=== PATIENT | female | born 1930 | race Caucasian/White ===

== ENCOUNTER 2019-03-13 10:06 | Observation (INO) | payer MEDICARE, BC ==
[2019-03-13] MEDS ORDERED: Sodium Chloride 0.9% 10 ML Syringe FLUSH PRN (10:10)
[2019-03-13] MEDS ORDERED: Sodium Chloride 0.9% 2.5 ML Syringe FLUSH PRN (10:10)
--- NOTE | 2019-03-13 10:13 | EDM.PDOC ---
ED HPI GENERAL MEDICAL PROBLEM - General Stated Complaint: DIZZY SPELLS Time Seen by Provider: 03/13/19 10:08 Source of Information: Reports: Patient History Limitations: Reports: No Limitations - History of Present Illness INITIAL COMMENTS - FREE TEXT/NARRATIVE: HISTORY AND PHYSICAL: History of present illness: Patient is an 88-year-old female presents to the ED today with concern of dizziness since this morning. Patient states that the dizziness is worse when she stands up and tries to walk and feels as if the room is spinning or she might lose consciousness. Patient states because of the dizziness she feels " off balance." Patient states she has not had any falls or hitting her head. Patient states she has a history of hypothyroidism, hypertension, and colon cancer but has been in remission for several years according to patient. Patient denies fever, chills, chest pain, shortness of breath, or cough. Denies headache, neck stiff ness, change in vision, syncope. Denies nausea, vomiting, abdominal pain, diarrhea, constipation, or dysuria. Has not noted any blood in urine or stool. Patient has been eating and drinking appropriately. Review of systems: As per history of present illness and below otherwise all systems reviewed and negative. Past medical history: As per history of present illness and as reviewed below otherwise noncontributory. Surgical history: As per history of present illness and as reviewed below otherwise noncontributory. Social history: See social history for further information Family history: As per history of present illness and as reviewed below otherwise noncontributory. Physical exam: General: Patient is alert, oriented, and in no acute distress. Patient laying comfortably on exam table. HEENT: Atraumatic, normocephalic, pupils equal and reactive bilaterally, negative for conjunctival pallor or scleral icterus, mucous membranes dry, TMs normal bilaterally, throat clear, neck supple, nontender, trachea midline. No drooling or trismus noted. No meningeal signs. No hot potato voice noted. Lungs: Clear to auscultation, breath sounds equal bilaterally, chest nontender. Heart: S1S2, regular rate and rhythm without overt murmur Abdomen: Soft, nondistended, nontender. Negative for masses or hepatosplenomegaly. Negative for costovertebral tenderness. Pelvis: Stable nontender. Genitourinary: Deferred. Rectal: Deferred. Skin: Intact, warm, dry. No lesions or rashes noted. Extremities: Atraumatic, negative for cords or calf pain. Neurovascular unremarkable. Neuro: Awake, alert, oriented. Cranial nerves II through XII unremarkable. Cerebellum unremarkable. Motor and sensory unremarkable throughout. Exam nonfocal. Notes: Dr. Roman consulted on patient and will admit to observation Voices understanding and is agreeable to plan of care. Denies any further questions or concerns at this time. Diagnostics: CBC, CMP, UA, EKG, chest x-ray, troponin, TSH, Head CT Therapeutics: Saline Impression: Dizziness Fall risk Hyperthyroid Plan: 1. Admit to observation to Dr. Roman Definitive disposition and diagnosis as appropriate pending reevaluation and review of above. - Related Data Allergies Allergy/AdvReac Type Severity Reaction Status Date / Time celecoxib [From Celebrex] Allergy Rash Verified 03/13/19 10:13 codeine Allergy Rash Verified 03/13/19 10:13 Home Meds: Home Meds Lactose-Reduced Food [Boost] 1 bottle PO DAILY 04/09/14 [History] Levothyroxine Sodium [Synthroid] 125 mcg PO DAILY 04/09/14 [History] Naproxen Sodium [Aleve] 2 tab PF ASDIRECTED PRN 04/09/14 [History] amLODIPine [Norvasc] 2.5 mg PO DAILY 03/13/19 [History] ED ROS GENERAL - Review of Systems Review Of Systems: ROS reveals no pertinent complaints other than HPI. ED EXAM, GENERAL - Physical Exam Exam: See Below (See dictation) Course - Vital Signs Last Recorded V/S: Last Vital Signs Temp 96.3 F 03/13/19 10:11 Pulse 76 03/13/19 10:11 Resp 18 03/13/19 10:11 BP 125/76 03/13/19 10:11 Pulse Ox 96 03/13/19 10:11 Orthostatic Blood Pressure [ 125/86 Standing] Orthostatic Blood Pressure [ 134/68 Sitting] Orthostatic Blood Pressure [ 126/64 Supine] - Orders/Labs/Meds Orders: Active Orders 24 hr Category Date Time Status EKG Documentation Completion [RC] STAT Care 03/13/19 10:10 Active Orthostatic Vital Signs [RC] ASDIRECTED Care 03/13/19 10:22 Active CULTURE URINE [RM] Stat Lab 03/13/19 10:30 Received Sodium Chloride 0.9% [Normal Saline] 1,000 ml Med 03/13/19 10:21 Active IV BOLUS Sodium Chloride 0.9% [Saline Flush] Med 03/13/19 10:10 Active 10 ml FLUSH ASDIRECTED PRN Sodium Chloride 0.9% [Saline Flush] Med 03/13/19 10:10 Active 2.5 ml FLUSH ASDIRECTED PRN Saline Lock Insert [OM.PC] Stat Oth 03/13/19 10:10 Ordered Medication Orders Sodium Chloride (Normal Saline) 1,000 mls @ 500 mls/hr IV BOLUS ONE Stop: 03/13/19 12:20 Last Infusion: 03/13/19 12:09 Dose: 50 mls/hr Admin: 03/13/19 11:06 Dose: 500 mls/hr Sodium Chloride (Saline Flush) 10 ml FLUSH ASDIRECTED PRN PRN Reason: Keep Vein Open Sodium Chloride (Saline Flush) 2.5 ml FLUSH ASDIRECTED PRN PRN Reason: Keep Vein Open Labs: Laboratory Tests 03/13/19 03/13/19 03/13/19 Range/Units 10: 10:19 10:19 WBC 4.73 (4.0-11.0) K/uL RBC 4.18 L (4.30-5.90) M/uL Hgb 13.0 (12.0-16.0) g/dL Hct 37.9 (36.0-46.0) % MCV 90.7 (80.0-98.0) fL MCH 31.1 (27.0-32.0) pg MCHC 34.3 (31.0-37.0) g/dL RDW Std Deviation 42.1 (28.0-62.0) fl RDW Coeff of [place] 13 (11.0-15.0) % Plt Count 161 (150-400) K/uL MPV 11.10 (7.40-12.00) fL Neut % (Auto) 48.4 (48.0-80.0) % Lymph % (Auto) 41.0 H (16.0-40.0) % Logan % (Auto) 8.7 (0.0-15.0) % Eos % (Auto) 1.7 (0.0-7.0) % Baso % (Auto) 0.2 (0.0-1.5) % Neut # (Auto) 2.3 (1.4-5.7) K/uL Lymph # (Auto) 1.9 (0.6-2.4) K/uL Logan # (Auto) 0.4 (0.0-0.8) K/uL Eos # (Auto) 0.1 (0.0-0.7) K/uL Baso # (Auto) 0.0 (0.0-0.1) K/uL Nucleated RBC % 0.0 /100WBC Nucleated RBCs # 0 K/uL Sodium 142 (136-145) mmol/L Potassium 4.1 (3.5-5.1) mmol/L Chloride 104 (98-107) mmol/L Carbon Dioxide 26.0 (21.0-32.0) mmol/L BUN 16 (7.0-18.0) mg/dL Creatinine 0.9 (0.6-1.0) mg/dL Est Cr Clr Drug Dosing 38.88 mL/min Estimated GFR (MDRD) 59.1 ml/min Glucose 107 H (74-106) mg/dL Calcium 9.3 (8.5-10.1) mg/dL Total Bilirubin 0.9 (0.2-1.0) mg/dL AST 25 (15-37) IU/L ALT 30 (14-63) IU/L Alkaline Phosphatase 64 (46-116) U/L Troponin I < 0.050 (0.000-0.056) ng/mL Total Protein 7.3 (6.4-8.2) g/dL Albumin 4.5 (3.4-5.0) g/dL Globulin 2.8 (2.6-4.0) g/dL Albumin/Globulin Ratio 1.6 (0.9-1.6) TSH 3rd Generation 0.28 L (0.36-3.74) uIU/mL Urine Color Urine Appearance Urine pH (5.0-8.0) Ur Specific [place] (1.001-1.035) Urine Protein (NEGATIVE) mg/dL Urine Glucose (UA) (NEGATIVE) mg/dL Urine Ketones (NEGATIVE) mg/dL Urine Occult Blood (NEGATIVE) Urine Nitrite (NEGATIVE) Urine Bilirubin (NEGATIVE) Urine Urobilinogen (<2.0) EU/dL Ur Leukocyte Esterase (NEGATIVE) Urine RBC (0-2/HPF) Urine WBC (0-5/HPF) Ur Epithelial Cells (NONE-FEW) Urine Bacteria (NEGATIVE) 03/13/19 Range/Units 10:30 WBC (4.0-11.0) K/uL RBC (4.30-5.90) M/uL Hgb (12.0-16.0) g/dL Hct (36.0-46.0) % MCV (80.0-98.0) fL MCH (27.0-32.0) pg MCHC (31.0-37.0) g/dL RDW Std Deviation (28.0-62.0) fl RDW Coeff of [place] (11.0-15.0) % Plt Count (150-400) K/uL MPV (7.40-12.00) fL Neut % (Auto) (48.0-80.0) % Lymph % (Auto) (16.0-40.0) % Logan % (Auto) (0.0-15.0) % Eos % (Auto) (0.0-7.0) % Baso % (Auto) (0.0-1.5) % Neut # (Auto) (1.4-5.7) K/uL Lymph # (Auto) (0.6-2.4) K/uL Logan # (Auto) (0.0-0.8) K/uL Eos # (Auto) (0.0-0.7) K/uL Baso # (Auto) (0.0-0.1) K/uL Nucleated RBC % /100WBC Nucleated RBCs # K/uL Sodium (136-145) mmol/L Potassium (3.5-5.1) mmol/L Chloride (98-107) mmol/L Carbon Dioxide (21.0-32.0) mmol/L BUN (7.0-18.0) mg/dL Creatinine (0.6-1.0) mg/dL Est Cr Clr Drug Dosing mL/min Estimated GFR (MDRD) ml/min Glucose (74-106) mg/dL Calcium (8.5-10.1) mg/dL Total Bilirubin (0.2-1.0) mg/dL AST (15-37) IU/L ALT (14-63) IU/L Alkaline Phosphatase (46-116) U/L Troponin I (0.000-0.056) ng/mL Total Protein (6.4-8.2) g/dL Albumin (3.4-5.0) g/dL Globulin (2.6-4.0) g/dL Albumin/Globulin Ratio (0.9-1.6) TSH 3rd Generation (0.36-3.74) uIU/mL Urine Color YELLOW Urine Appearance CLEAR Urine pH 8.0 (5.0-8.0) Ur Specific [place] 1.010 (1.001-1.035) Urine Protein NEGATIVE (NEGATIVE) mg/dL Urine Glucose (UA) NEGATIVE (NEGATIVE) mg/dL Urine Ketones NEGATIVE (NEGATIVE) mg/dL Urine Occult Blood NEGATIVE (NEGATIVE) Urine Nitrite NEGATIVE (NEGATIVE) Urine Bilirubin NEGATIVE (NEGATIVE) Urine Urobilinogen 0.2 (<2.0) EU/dL Ur Leukocyte Esterase MODERATE H (NEGATIVE) Urine RBC 0-2 (0-2/HPF) Urine WBC 0-3 (0-5/HPF) Ur Epithelial Cells OCCASIONAL (NONE-FEW) Urine Bacteria RARE (NEGATIVE) Meds: Medications Generic Name Dose Route Start Last Admin Trade Name Freq PRN Reason Stop Dose Admin Sodium Chloride 1,000 mls @ 500 mls/hr 03/13/19 10:21 03/13/19 12:09 Normal Saline IV 03/13/19 12:20 50 mls/hr BOLUS ONE Infusion Sodium Chloride 10 ml 03/13/19 10:10 Saline Flush FLUSH ASDIRECTED PRN Keep Vein Open Sodium Chloride 2.5 ml 03/13/19 10:10 Saline Flush FLUSH ASDIRECTED PRN Keep Vein Open Departure - Departure Time of Disposition: 12:18 Disposition: Refer to Observation Clinical Impression: Dizziness, Risk for falls, Hyperthyroidism - Discharge Information Referrals: Getachew Patterson MD [Primary Care Provider] - - My Orders Last 24 Hours: My Active Orders 03/13/19 10:10 EKG Documentation Completion [RC] STAT Sodium Chloride 0.9% [Saline Flush] 10 ml FLUSH ASDIRECTED PRN Sodium Chloride 0.9% [Saline Flush] 2.5 ml FLUSH ASDIRECTED PRN Saline Lock Insert [OM.PC] Stat 03/13/19 10:21 Sodium Chloride 0.9% [Normal Saline] 1,000 ml IV BOLUS 03/13/19 10:22 Orthostatic Vital Signs [RC] ASDIRECTED 03/13/19 10:30 CULTURE URINE [RM] Stat - Assessment/Plan Last 24 Hours: My Active Orders 03/13/19 10:10 EKG Documentation Completion [RC] STAT Sodium Chloride 0.9% [Saline Flush] 10 ml FLUSH ASDIRECTED PRN Sodium Chloride 0.9% [Saline Flush] 2.5 ml FLUSH ASDIRECTED PRN Saline Lock Insert [OM.PC] Stat 03/13/19 10:21 Sodium Chloride 0.9% [Normal Saline] 1,000 ml IV BOLUS 03/13/19 10:22 Orthostatic Vital Signs [RC] ASDIRECTED 03/13/19 10:30 CULTURE URINE [RM] Stat
[2019-03-13] MEDS ORDERED: Sodium Chloride 0.9% 1,000 ML IV ONE (10:21)
[2019-03-13 10:58] LABS: POTASSIUM,K 4.1 mmol/L (3.5-5.1)
--- NOTE | 2019-03-13 11:01 | CT ---
EXAM DATE: 03/13/19 PATIENT'S AGE: [address] Technique: Multiple axial sections through the brain were obtained. Intravenous contrast was not utilized. Comparison: No prior intracranial imaging. Findings: Atherosclerotic calcification is seen within the vertebral vessels and within the carotid siphon. Ventricles along with basal cisterns and sulci over the convexities are mildly prominent. Minimal areas of diminished density are noted within the periventricular white matter which is compatible with minimal small vessel ischemic demyelination change. No other abnormal parenchymal densities are seen. No evidence of intracranial hemorrhage. No midline shift or mass effect is seen. Bone window settings were reviewed which shows no acute calvarial abnormality. Mastoid sinuses are clear. Middle ear cavities also appear clear. No acute paranasal sinus findings are appreciated. Incidental mild mucosal thickening is seen within the maxillary sinuses. Impression: 1. Senescent change as noted above. 2. Nothing acute is appreciated on noncontrast head CT exam. Diagnostic code #2 MTDD
--- NOTE | 2019-03-13 11:22 | CR ---
EXAM DATE: 03/13/19 PATIENT'S AGE: 88 Chest: AP view of the chest was obtained. Comparison: Prior chest x-ray of 12/26/13. Heart size is normal. Tortuous thoracic aorta is seen. Lungs are clear. Degenerative change is noted within both shoulders with findings compatible with chronic rotator cuff tears. Impression: 1. Findings as noted above. 2. Nothing acute is appreciated on AP chest x-ray. Diagnostic code #2 MTDD
[2019-03-13] MEDS ORDERED: Acetaminophen 325 MG Tab PO PRN (12:57)
[2019-03-13] MEDS ORDERED: Ondansetron 4 MG/2 ML SDV IVPUSH PRN (12:57)
[2019-03-13] MEDS ORDERED: Albuterol/Ipratropium 3.0-0.5 MG/3 ML Neb Soln NEB PRN (12:57)
[2019-03-13] MEDS ORDERED: Aspirin 81 MG Tab.Chew PO ONE (12:58)
--- NOTE | 2019-03-13 13:00 | PCM.HP.2 ---
H&P History of Present Illness - General Date of Service: 03/13/19 Admit Problem/Dx: Admission Diagnosis/Problem Admission Diagnosis/Problem Dizziness Source of Information: Patient, Family History Limitations: Reports: No Limitations - History of Present Illness Initial Comments - Free Text/Narative: This 88 year old female with pmh of hypothyroidism, HTN, and colon ca in remission since 2012 presented to the ED with complaints of dizziness that started this morning. She had just finished taking her morning medications and she stood up and felt dizzy. She reports she feels like she is off balance and unsteady, denies the room is spinning. She reports she has had vertigo in the past and feels this is very similar, but denies the dizziness worsening when she moves her head, only with standing up or sitting up. She reports up until this today when dizziness started she was feeling well. She denies recent fevers , chills, sinus congestion, no dyspnea or chest pain. She denies noticing any palpitations or racing heart. No urinary concerns, no dysuria or urgency frequency. No abdominal pain or diarrhea. No black or bloody BMs. She denies any focal neurological concerns. Denies weakness to specific limb, no speech or swallowing concerns. She denies smoking history and no alcohol use. In the ED no leukocytosis, CBC WNL. Troponin negative. BMP WNL. CXR negative. TSH noted to be 0.28, UA reveals leukocyte esterase, no pyruia or bacteria. EKG revealed SR with prolonged LA, no ST elevation or T wave inversions. Orthostatic BP stable in ED no hypotension or drop in BP. Head CT negative. PCP, Dr Patterson. - Related Data Allergies/Adverse Reactions: Allergies Allergy/AdvReac Type Severity Reaction Status Date / Time celecoxib [From Celebrex] Allergy Rash Verified 03/13/19 10:13 codeine Allergy Rash Verified 03/13/19 10:13 latex Allergy Rash Verified 03/13/19 12:41 Home Medications: Home Meds Lactose-Reduced Food [Boost] 1 bottle PO DAILY 04/09/14 [History] Levothyroxine Sodium [Synthroid] 125 mcg PO DAILY 04/09/14 [History] Naproxen Sodium [Aleve] 2 tab PF ASDIRECTED PRN 04/09/14 [History] amLODIPine [Norvasc] 2.5 mg PO DAILY 03/13/19 [History] Past Medical History HEENT History: Reports: Cataract, Other (See Below) Other HEENT History: blind right eye Cardiovascular History: Reports: High Cholesterol, Hypertension. Denies: Afib, Blood Clots/VTE/DVT, MT, Stents Respiratory History: Reports: None. Denies: Asthma, COPD Gastrointestinal History: Reports: None. Denies: GERD Genitourinary History: Reports: None. Denies: Chronic Renal Insuffiency [employer] History: Reports: None Musculoskeletal History: Reports: Arthritis, Back Pain, Chronic, Gout Neurological History: Reports: None. Denies: CVA, TIA Psychiatric History: Reports: None. Denies: Depression Endocrine/Metabolic History: Reports: Hypothyroidism Hematologic History: Reports: None Immunologic History: Reports: None Oncologic (Cancer) History: Reports: Colon Dermatologic History: Reports: None - Past Surgical History HEENT Surgical History: Reports: None Cardiovascular Surgical History: Reports: None Respiratory Surgical History: Reports: None GI Surgical History: Reports: Colon, Hernia, Abdominal Female Surgical History: Reports: None Endocrine Surgical History: Reports: None Neurological Surgical History: Reports: Lumbar Spine Musculoskeletal Surgical History: Reports: None Oncologic Surgical History: Reports: None Dermatological Surgical History: Reports: None Social & Family History - Family History Family Medical History: Noncontributory - Tobacco Use Smoking Status *Q: Never Smoker Second Hand Smoke Exposure: No - Caffeine Use Caffeine Use: Reports: None - Alcohol Use Alcohol Use History: No - Recreational Drug Use Recreational Drug Use: No - Living Situation & Occupation Living situation: Reports: , with Family Occupation: Retired H&P Review of Systems - Review of Systems: Review Of Systems: See Below General: Reports: No Symptoms. Denies: Fever, Chills, Malaise, Weakness HEENT: Reports: Vertigo. Denies: Ear Pain, Eye Pain, Headaches, Post Nasal Drip , Sinus Congestion, Visual Changes Pulmonary: Reports: Shortness of Breath (has been ). Denies: Cough, Sputum Cardiovascular: Reports: No Symptoms. Denies: Chest Pain Gastrointestinal: Reports: No Symptoms. Denies: Black Stool, Bloody Stool Genitourinary: Reports: No Symptoms. Denies: Dysuria, Frequency, Burning, Pain , Urgency, Incontinence Musculoskeletal: Reports: Back Pain (chronic low back pain) Skin: Reports: No Symptoms Psychiatric: Reports: No Symptoms Neurological: Reports: Dizziness, Gait Disturbance (feels unsteady). Denies: Headache, Numbness, Paresthesia, Weakness, Change in Speech Hematologic/Lymphatic: Reports: No Symptoms Immunologic: Reports: No Symptoms Exam - Exam Exam: See Below - Vital Signs Vital Signs: Last Vital Signs Temp 96.3 F 03/13/19 10:11 Pulse 67 03/13/19 12:30 Resp 15 03/13/19 12:30 BP 136/79 03/13/19 12:30 Pulse Ox 95 03/13/19 12:30 Orthostatic Blood Pressure [ 125/86 Standing] Orthostatic Blood Pressure [ 134/68 Sitting] Orthostatic Blood Pressure [ 126/64 Supine] Weight: 63.503 kg - Exam General: Alert, Oriented, Cooperative HEENT: Conjunctiva Clear, Mucosa Moist & [place], Posterior Pharynx Clear Lungs: Clear to Auscultation, Normal Respiratory Effort Cardiovascular: Regular Rate, Regular Rhythm. No: Systolic Murmur GI/Abdominal Exam: Normal Bowel Sounds, Soft, Non-Tender Back Exam: Normal Inspection, Full Range of Motion Extremities: Normal Inspection, Normal Range of Motion, Non-Tender, No Pedal Edema Neuro Extensive - Mental Status: Alert, Oriented x3 Neuro Extensive - Motor, Sensory, Reflexes: CN II-XII Intact. No: Normal Gait ( unsteady) Psychiatric: Alert, Normal Affect, Normal Mood - Patient Data Lab Results Last 24 hrs: Laboratory Results - last 24 hr 03/13/19 03/13/19 03/13/19 Range/Units 10: 10: 10: WBC 4.73 (4.0-11.0) K/uL RBC 4.18 L (4.30-5.90) M/uL Hgb 13.0 (12.0-16.0) g/dL Hct 37.9 (36.0-46.0) % MCV 90.7 (80.0-98.0) fL MCH 31.1 (27.0-32.0) pg MCHC 34.3 (31.0-37.0) g/dL RDW Std Deviation 42.1 (28.0-62.0) fl RDW Coeff of Jose Francisco 13 (11.0-15.0) % Plt Count 161 (150-400) K/uL MPV 11.10 (7.40-12.00) fL Neut % (Auto) 48.4 (48.0-80.0) % Lymph % (Auto) 41.0 H (16.0-40.0) % Rains % (Auto) 8.7 (0.0-15.0) % Eos % (Auto) 1.7 (0.0-7.0) % Baso % (Auto) 0.2 (0.0-1.5) % Neut # (Auto) 2.3 (1.4-5.7) K/uL Lymph # (Auto) 1.9 (0.6-2.4) K/uL Rains # (Auto) 0.4 (0.0-0.8) K/uL Eos # (Auto) 0.1 (0.0-0.7) K/uL Baso # (Auto) 0.0 (0.0-0.1) K/uL Nucleated RBC % 0.0 /100WBC Nucleated RBCs # 0 K/uL Sodium 142 (136-145) mmol/L Potassium 4.1 (3.5-5.1) mmol/L Chloride 104 (98-107) mmol/L Carbon Dioxide 26.0 (21.0-32.0) mmol/L BUN 16 (7.0-18.0) mg/dL Creatinine 0.9 (0.6-1.0) mg/dL Est Cr Clr Drug Dosing 38.88 mL/min Estimated GFR (MDRD) 59.1 ml/min Glucose 107 H (74-106) mg/dL Calcium 9.3 (8.5-10.1) mg/dL Total Bilirubin 0.9 (0.2-1.0) mg/dL AST 25 (15-37) IU/L ALT 30 (14-63) IU/L Alkaline Phosphatase 64 (46-116) U/L Troponin I < 0.050 (0.000-0.056) ng/mL Total Protein 7.3 (6.4-8.2) g/dL Albumin 4.5 (3.4-5.0) g/dL Globulin 2.8 (2.6-4.0) g/dL Albumin/Globulin Ratio 1.6 (0.9-1.6) TSH 3rd Generation 0.28 L (0.36-3.74) uIU/mL Urine Color Urine Appearance Urine pH (5.0-8.0) Ur Specific [place] (1.001-1.035) Urine Protein (NEGATIVE) mg/dL Urine Glucose (UA) (NEGATIVE) mg/dL Urine Ketones (NEGATIVE) mg/dL Urine Occult Blood (NEGATIVE) Urine Nitrite (NEGATIVE) Urine Bilirubin (NEGATIVE) Urine Urobilinogen (<2.0) EU/dL Ur Leukocyte Esterase (NEGATIVE) Urine RBC (0-2/HPF) Urine WBC (0-5/HPF) Ur Epithelial Cells (NONE-FEW) Urine Bacteria (NEGATIVE) 03/13/19 Range/Units 10:30 WBC (4.0-11.0) K/uL RBC (4.30-5.90) M/uL Hgb (12.0-16.0) g/dL Hct (36.0-46.0) % MCV (80.0-98.0) fL MCH (27.0-32.0) pg MCHC (31.0-37.0) g/dL RDW Std Deviation (28.0-62.0) fl RDW Coeff of Jose Francisco (11.0-15.0) % Plt Count (150-400) K/uL MPV (7.40-12.00) fL Neut % (Auto) (48.0-80.0) % Lymph % (Auto) (16.0-40.0) % Rains % (Auto) (0.0-15.0) % Eos % (Auto) (0.0-7.0) % Baso % (Auto) (0.0-1.5) % Neut # (Auto) (1.4-5.7) K/uL Lymph # (Auto) (0.6-2.4) K/uL Rains # (Auto) (0.0-0.8) K/uL Eos # (Auto) (0.0-0.7) K/uL Baso # (Auto) (0.0-0.1) K/uL Nucleated RBC % /100WBC Nucleated RBCs # K/uL Sodium (136-145) mmol/L Potassium (3.5-5.1) mmol/L Chloride (98-107) mmol/L Carbon Dioxide (21.0-32.0) mmol/L BUN (7.0-18.0) mg/dL Creatinine (0.6-1.0) mg/dL Est Cr Clr Drug Dosing mL/min Estimated GFR (MDRD) ml/min Glucose (74-106) mg/dL Calcium (8.5-10.1) mg/dL Total Bilirubin (0.2-1.0) mg/dL AST (15-37) IU/L ALT (14-63) IU/L Alkaline Phosphatase (46-116) U/L Troponin I (0.000-0.056) ng/mL Total Protein (6.4-8.2) g/dL Albumin (3.4-5.0) g/dL Globulin (2.6-4.0) g/dL Albumin/Globulin Ratio (0.9-1.6) TSH 3rd Generation (0.36-3.74) uIU/mL Urine Color YELLOW Urine Appearance CLEAR Urine pH 8.0 (5.0-8.0) Ur Specific [place] 1.010 (1.001-1.035) Urine Protein NEGATIVE (NEGATIVE) mg/dL Urine Glucose (UA) NEGATIVE (NEGATIVE) mg/dL Urine Ketones NEGATIVE (NEGATIVE) mg/dL Urine Occult Blood NEGATIVE (NEGATIVE) Urine Nitrite NEGATIVE (NEGATIVE) Urine Bilirubin NEGATIVE (NEGATIVE) Urine Urobilinogen 0.2 (<2.0) EU/dL Ur Leukocyte Esterase MODERATE H (NEGATIVE) Urine RBC 0-2 (0-2/HPF) Urine WBC 0-3 (0-5/HPF) Ur Epithelial Cells OCCASIONAL (NONE-FEW) Urine Bacteria RARE (NEGATIVE) Result Diagrams: 03/13/19 10:19 03/13/19 10:19 EKG INTERPRETATION EKG Date: 03/13/19 Rhythm: NSR Rate (Beats/Min): 70 P-Wave: Present (LA prolonged,) QRS: Normal ST-T: Normal QT: Normal - Problem List (1) Dizziness SNOMED Code(s): 200388577, 288075316 ICD Code: R42 - DIZZINESS AND GIDDINESS Status: Acute Current Visit: Yes (2) Hypothyroidism SNOMED Code(s): 27400475 ICD Code: E03.9 - HYPOTHYROIDISM, UNSPECIFIED Status: Chronic Current Visit: Yes (3) HTN (hypertension) SNOMED Code(s): 41601105 ICD Code: I10 - ESSENTIAL (PRIMARY) HYPERTENSION Status: Acute Current Visit: Yes (4) Hyperthyroidism SNOMED Code(s): 95047539 ICD Code: E05.90 - THYROTOXICOSIS, UNSP WITHOUT THYROTOXIC CRISIS OR STORM Status: Acute Current Visit: Yes (5) Risk for falls SNOMED Code(s): 312706911 ICD Code: Z91.81 - HISTORY OF FALLING Status: Acute Current Visit: Yes (6) History of malignant neoplasm of colon SNOMED Code(s): 173041789 ICD Code: Z85.038 - PERSONAL HISTORY OF MALIGNANT NEOPLASM OF LARGE INTESTINE Status: Acute Current Visit: No Problem List Initiated/Reviewed/Updated: Yes Orders Last 24hrs: Active Orders 24 hr Category Date Time Status Admission Status [Patient Status] [ADT] Stat ADT 03/13/19 12:21 Active EKG Documentation Completion [RC] STAT Care 03/13/19 10:10 Active Intake and Output [RC] QSHIFT Care 03/13/19 12:57 Ordered Orthostatic Vital Signs [RC] ASDIRECTED Care 03/13/19 10:22 Active Oxygen Therapy [RC] PRN Care 03/13/19 12:57 Ordered RT Aerosol Therapy [RC] ASDIRECTED Care 03/13/19 12:58 Ordered Telemetry Monitoring [Cardiac Monitoring] [RC] . Care 03/13/19 12:27 Active DIRECTED Up With Assistance [RC] ASDIRECTED Care 03/13/19 12:57 Ordered VTE/DVT Education [RC] PER UNIT ROUTINE Care 03/13/19 12:57 Ordered Vital Signs [RC] Q4H Care 03/13/19 12:57 Ordered PT Evaluation and Treatment [CONS] Routine Cons 03/13/19 12:57 Ordered Heart Healthy Diet [DIET] Diet 03/13/19 Lunch Ordered Brain wo Cont [MR] Routine Exams 03/13/19 12:55 Ordered BASIC METABOLIC PANEL,BMP [CHEM] AM Lab 03/14/19 05:11 Ordered CBC WITH AUTO DIFF [HEME] AM Lab 03/14/19 05:11 Ordered CULTURE URINE [RM] Stat Lab 03/13/19 10:30 Received GLYCOSYLATED HEMOGLOBIN,HGBA1C [CHEM] Routine Lab 03/14/19 05:11 Ordered LIPID PANEL [CHEM] Routine Lab 03/13/19 12:59 Ordered Acetaminophen [Tylenol] Med 03/13/19 12:57 Ordered 650 mg PO Q4H PRN Albuterol/Ipratropium [DuoNeb 3.0-0.5 MG/3 ML] Med 03/13/19 12:57 Ordered 3 ml NEB Q4HRRT PRN Aspirin Med 03/13/19 12:58 Once 324 mg PO ONETIME ONE Ondansetron [Zofran] Med 03/13/19 12:57 Ordered 4 mg IVPUSH Q4H PRN Sodium Chloride 0.9% [Saline Flush] Med 03/13/19 10:10 Active 10 ml FLUSH ASDIRECTED PRN Sodium Chloride 0.9% [Saline Flush] Med 03/13/19 10:10 Active 2.5 ml FLUSH ASDIRECTED PRN Saline Lock Insert [OM.PC] Stat Oth 03/13/19 10:10 Ordered Resuscitation Status Routine Resus Stat 03/13/19 12:57 Ordered Medication Orders Acetaminophen (Tylenol) 650 mg PO Q4H PRN PRN Reason: Pain (Mild 1-3)/fever Albuterol/Ipratropium (Duoneb 3.0-0.5 Mg/3 Ml) 3 ml NEB Q4HRRT PRN PRN Reason: Shortness Of Breath/wheezing Aspirin (Aspirin) 324 mg PO ONETIME ONE Stop: 03/13/19 12:59 Ondansetron HCl (Zofran) 4 mg IVPUSH Q4H PRN PRN Reason: Nausea Sodium Chloride (Saline Flush) 10 ml FLUSH ASDIRECTED PRN PRN Reason: Keep Vein Open Sodium Chloride (Saline Flush) 2.5 ml FLUSH ASDIRECTED PRN PRN Reason: Keep Vein Open Assessment/Plan Comment:: This 88 year old female admitted with new onset dizziness 1. Dizziness: new onset this morning, no nystagmus noted. Will obtain Brain MRI to further evaluate for possible stroke. Will give ASA now. Reports allergic to statin therapies, will hold off on statin for now. Obtain A1c and lipid profile. Consult PT to evaluate for vestibular causes due to history of vertigo in the past. Hold on meclizine until PT evaluates. Monitor Orthostatic BPs. Given 1 L in the ED, does not appear dehydrated. 2. Hypothyroidism: Hold Levothyroxine due to TSH being decreased at 0.28. Currently taking 125 mcg Levothyroxine, decrease to 100 and recheck with PCP. Previous TSH 2.5 in May 2018. Monitor on telemetry for arrhythmias. 3. HTN: Stable. Hold Norvasc for now while ruling out CVA. VTE prophylaxis: Heparin Dispo: 1-2 days pending improvement. - Mortality Measure Prognosis:: Good
--- NOTE | 2019-03-13 14:33 | MR ---
INDICATION: Dizziness. TECHNIQUE: Brain MRI without contrast. The following sequences were obtained: 3D T1 weighted sequence. DWI and ADC mapping sequences. Axial FLAIR and IRIS T2 weighted sequences. Axial SWI sequence. COMPARISON: Head CT from 03/13/2019. FINDINGS: No acute infarct or hemorrhage. Scattered T2 hyperintensities within the deep and periventricular white matter, nonspecific but most likely represents chronic small vessel ischemic disease and age related changes in a patient in this age category. There is mild generalized parenchymal volume loss. No mass effect or herniation. No hydrocephalus or extra-axial collections. Low lying optic chiasm with thickening on the left. Posterior fossa is normal. All the major intracranial vascular structures demonstrate normal flow-related signal. The orbital contents are normal. No calvarial or skull base marrow signal abnormality. No obstructive sinus disease. No extracranial soft tissue findings. IMPRESSION: 1. No acute intracranial abnormalities, including no evidence of acute infarction, intracranial hemorrhage or mass effect. 2. Mild generalized parenchymal volume loss. Mild chronic small vessel ischemic disease and age related changes within the supratentorial white matter. 3. Low-lying optic chiasm with thickening on the left. This may reflect anatomic variation. Contrast imaging would be useful for further characterization and a nonemergent setting. Dictated by Juwan Hancock MD @ Mar 13 2019 2:22PM Signed by Dr. Juwan Hancock @ Mar 13 2019 2:32PM
[2019-03-13] MEDS ORDERED: Heparin Sodium 5,000 Units/ML Vial SUBCUT SCH (14:45)
[2019-03-13] MEDS ORDERED: Meclizine 25 MG Tab PO PRN (14:58)
[2019-03-13] MEDS ORDERED: Sodium Chloride 0.9% 500 ML IV SCH (17:15)
--- NOTE | 2019-03-13 19:20 | PCM.DCSUM1 ---
Discharge Summary - Hospital Course Free Text/Narrative:: Danielle Mccall 88 y/o female with history of hypothyroidism, hypertension presented to the ER complaining of new onset dizziness. In the ER, EKG showed sinus rhythm , no ST changes. Troponin was negative. She was admitted for further workup of new onset dizziness. MRI was negative for any acute findings. She was placed on telemetry. Later on this evening, telemetry showed an arrhythmia, bradycardia into the 40's. 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 Patient denied any chest pain, dyspnea. She did endorse some dizziness. Dr. 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 Spoke with Dr. Hernandez who accepted the patient. Initially, patient was going to be transported via ground ambulance, however, no ambulance service available at the time so it was decided to transfer her via air. - Discharge Data Discharge Date: 03/13/19 Discharge Disposition: DC/Tfer to Acute Hospital 02 Condition: Fair - Referral to Home Health Primary Care Physician: Getachew Patterson MD - Patient Summary/Data Consults: Consultations 03/13/19 12:57 PT Evaluation and Treatment [CONS] Routine - Discharge Plan Home Medications: Home Meds Lactose-Reduced Food [Boost] 1 bottle PO DAILY 04/09/14 [History] Naproxen Sodium [Aleve] 2 tab PF ASDIRECTED PRN 04/09/14 [History] Levothyroxine 112 mcg PO DAILY 03/13/19 [History] amLODIPine [Norvasc] 10 mg PO BEDTIME 03/13/19 [History] Forms: ED Department Discharge Referrals: Getachew Patterson MD [Primary Care Provider] - - Discharge Summary/Plan Comment DC Time >30 min.: No - Patient Data Vitals - Most Recent: Last Vital Signs Temp 36.8 C 03/13/19 17:49 Pulse 82 03/13/19 17:49 Resp 22 H 03/13/19 17:49 BP 159/74 H 03/13/19 17:49 Pulse Ox 95 03/13/19 17:49 Orthostatic Blood Pressure [ 126/68 Standing] Orthostatic Blood Pressure [ 133/69 Sitting] Orthostatic Blood Pressure [ 131/63 Supine] Weight - Most Recent: 63.503 kg I&O - Last 24 hours: Intake & Output 03/13/19 03/13/19 03/13/19 06:59 14:59 22:59 Intake Total 800 Output Total 400 Balance 400 Lab Results - Last 24 hrs: Laboratory Results - last 24 hr 03/13/19 03/13/19 03/13/19 Range/Units 10: 10: 10: WBC 4.73 (4.0-11.0) K/uL RBC 4.18 L (4.30-5.90) M/uL Hgb 13.0 (12.0-16.0) g/dL Hct 37.9 (36.0-46.0) % MCV 90.7 (80.0-98.0) fL MCH 31.1 (27.0-32.0) pg MCHC 34.3 (31.0-37.0) g/dL RDW Std Deviation 42.1 (28.0-62.0) fl RDW Coeff of Jose Francisco 13 (11.0-15.0) % Plt Count 161 (150-400) K/uL MPV 11.10 (7.40-12.00) fL Neut % (Auto) 48.4 (48.0-80.0) % Lymph % (Auto) 41.0 H (16.0-40.0) % [place] % (Auto) 8.7 (0.0-15.0) % Eos % (Auto) 1.7 (0.0-7.0) % Baso % (Auto) 0.2 (0.0-1.5) % Neut # (Auto) 2.3 (1.4-5.7) K/uL Lymph # (Auto) 1.9 (0.6-2.4) K/uL [place] # (Auto) 0.4 (0.0-0.8) K/uL Eos # (Auto) 0.1 (0.0-0.7) K/uL Baso # (Auto) 0.0 (0.0-0.1) K/uL Nucleated RBC % 0.0 /100WBC Nucleated RBCs # 0 K/uL Sodium 142 (136-145) mmol/L Potassium 4.1 (3.5-5.1) mmol/L Chloride 104 (98-107) mmol/L Carbon Dioxide 26.0 (21.0-32.0) mmol/L BUN 16 (7.0-18.0) mg/dL Creatinine 0.9 (0.6-1.0) mg/dL Est Cr Clr Drug Dosing 38.88 mL/min Estimated GFR (MDRD) 59.1 ml/min Glucose 107 H (74-106) mg/dL Calcium 9.3 (8.5-10.1) mg/dL Phosphorus (2.6-4.7) mg/dL Magnesium (1.8-2.4) mg/dL Total Bilirubin 0.9 (0.2-1.0) mg/dL AST 25 (15-37) IU/L ALT 30 (14-63) IU/L Alkaline Phosphatase 64 (46-116) U/L Troponin I < 0.050 (0.000-0.056) ng/mL Total Protein 7.3 (6.4-8.2) g/dL Albumin 4.5 (3.4-5.0) g/dL Globulin 2.8 (2.6-4.0) g/dL Albumin/Globulin Ratio 1.6 (0.9-1.6) Triglycerides (0-200) mg/dL Cholesterol (50-200) mg/dL LDL Cholesterol, Calc (60-180) mg/dL VLDL Cholesterol (5-55) mg/dL HDL Cholesterol (40-60) mg/dL Cholesterol/HDL Ratio (3.3-6.0) TSH 3rd Generation 0.28 L (0.36-3.74) uIU/mL Urine Color Urine Appearance Urine pH (5.0-8.0) Ur Specific [place] (1.001-1.035) Urine Protein (NEGATIVE) mg/dL Urine Glucose (UA) (NEGATIVE) mg/dL Urine Ketones (NEGATIVE) mg/dL Urine Occult Blood (NEGATIVE) Urine Nitrite (NEGATIVE) Urine Bilirubin (NEGATIVE) Urine Urobilinogen (<2.0) EU/dL Ur Leukocyte Esterase (NEGATIVE) Urine RBC (0-2/HPF) Urine WBC (0-5/HPF) Ur Epithelial Cells (NONE-FEW) Urine Bacteria (NEGATIVE) 03/13/19 03/13/19 03/13/19 Range/Units 10: 10: 16:50 WBC (4.0-11.0) K/uL RBC (4.30-5.90) M/uL Hgb (12.0-16.0) g/dL Hct (36.0-46.0) % MCV (80.0-98.0) fL MCH (27.0-32.0) pg MCHC (31.0-37.0) g/dL RDW Std Deviation (28.0-62.0) fl RDW Coeff of Jose Francisco (11.0-15.0) % Plt Count (150-400) K/uL MPV (7.40-12.00) fL Neut % (Auto) (48.0-80.0) % Lymph % (Auto) (16.0-40.0) % [place] % (Auto) (0.0-15.0) % Eos % (Auto) (0.0-7.0) % Baso % (Auto) (0.0-1.5) % Neut # (Auto) (1.4-5.7) K/uL Lymph # (Auto) (0.6-2.4) K/uL [place] # (Auto) (0.0-0.8) K/uL Eos # (Auto) (0.0-0.7) K/uL Baso # (Auto) (0.0-0.1) K/uL Nucleated RBC % /100WBC Nucleated RBCs # K/uL Sodium (136-145) mmol/L Potassium (3.5-5.1) mmol/L Chloride (98-107) mmol/L Carbon Dioxide (21.0-32.0) mmol/L BUN (7.0-18.0) mg/dL Creatinine (0.6-1.0) mg/dL Est Cr Clr Drug Dosing mL/min Estimated GFR (MDRD) ml/min Glucose (74-106) mg/dL Calcium (8.5-10.1) mg/dL Phosphorus (2.6-4.7) mg/dL Magnesium (1.8-2.4) mg/dL Total Bilirubin (0.2-1.0) mg/dL AST (15-37) IU/L ALT (14-63) IU/L Alkaline Phosphatase (46-116) U/L Troponin I < 0.050 (0.000-0.056) ng/mL Total Protein (6.4-8.2) g/dL Albumin (3.4-5.0) g/dL Globulin (2.6-4.0) g/dL Albumin/Globulin Ratio (0.9-1.6) Triglycerides 107 (0-200) mg/dL Cholesterol 184 (50-200) mg/dL LDL Cholesterol, Calc 109 (60-180) mg/dL VLDL Cholesterol 21 (5-55) mg/dL HDL Cholesterol 54 (40-60) mg/dL Cholesterol/HDL Ratio 3.4 (3.3-6.0) TSH 3rd Generation (0.36-3.74) uIU/mL Urine Color YELLOW Urine Appearance CLEAR Urine pH 8.0 (5.0-8.0) Ur Specific [place] 1.010 (1.001-1.035) Urine Protein NEGATIVE (NEGATIVE) mg/dL Urine Glucose (UA) NEGATIVE (NEGATIVE) mg/dL Urine Ketones NEGATIVE (NEGATIVE) mg/dL Urine Occult Blood NEGATIVE (NEGATIVE) Urine Nitrite NEGATIVE (NEGATIVE) Urine Bilirubin NEGATIVE (NEGATIVE) Urine Urobilinogen 0.2 (<2.0) EU/dL Ur Leukocyte Esterase MODERATE H (NEGATIVE) Urine RBC 0-2 (0-2/HPF) Urine WBC 0-3 (0-5/HPF) Ur Epithelial Cells OCCASIONAL (NONE-FEW) Urine Bacteria RARE (NEGATIVE) 03/13/19 Range/Units 16:50 WBC (4.0-11.0) K/uL RBC (4.30-5.90) M/uL Hgb (12.0-16.0) g/dL Hct (36.0-46.0) % MCV (80.0-98.0) fL MCH (27.0-32.0) pg MCHC (31.0-37.0) g/dL RDW Std Deviation (28.0-62.0) fl RDW Coeff of Jose Francisco (11.0-15.0) % Plt Count (150-400) K/uL MPV (7.40-12.00) fL Neut % (Auto) (48.0-80.0) % Lymph % (Auto) (16.0-40.0) % [place] % (Auto) (0.0-15.0) % Eos % (Auto) (0.0-7.0) % Baso % (Auto) (0.0-1.5) % Neut # (Auto) (1.4-5.7) K/uL Lymph # (Auto) (0.6-2.4) K/uL [place] # (Auto) (0.0-0.8) K/uL Eos # (Auto) (0.0-0.7) K/uL Baso # (Auto) (0.0-0.1) K/uL Nucleated RBC % /100WBC Nucleated RBCs # K/uL Sodium (136-145) mmol/L Potassium (3.5-5.1) mmol/L Chloride (98-107) mmol/L Carbon Dioxide (21.0-32.0) mmol/L BUN (7.0-18.0) mg/dL Creatinine (0.6-1.0) mg/dL Est Cr Clr Drug Dosing mL/min Estimated GFR (MDRD) ml/min Glucose (74-106) mg/dL Calcium (8.5-10.1) mg/dL Phosphorus 3.4 (2.6-4.7) mg/dL Magnesium 2.0 (1.8-2.4) mg/dL Total Bilirubin (0.2-1.0) mg/dL AST (15-37) IU/L ALT (14-63) IU/L Alkaline Phosphatase (46-116) U/L Troponin I (0.000-0.056) ng/mL Total Protein (6.4-8.2) g/dL Albumin (3.4-5.0) g/dL Globulin (2.6-4.0) g/dL Albumin/Globulin Ratio (0.9-1.6) Triglycerides (0-200) mg/dL Cholesterol (50-200) mg/dL LDL Cholesterol, Calc (60-180) mg/dL VLDL Cholesterol (5-55) mg/dL HDL Cholesterol (40-60) mg/dL Cholesterol/HDL Ratio (3.3-6.0) TSH 3rd Generation (0.36-3.74) uIU/mL Urine Color Urine Appearance Urine pH (5.0-8.0) Ur Specific [place] (1.001-1.035) Urine Protein (NEGATIVE) mg/dL Urine Glucose (UA) (NEGATIVE) mg/dL Urine Ketones (NEGATIVE) mg/dL Urine Occult Blood (NEGATIVE) Urine Nitrite (NEGATIVE) Urine Bilirubin (NEGATIVE) Urine Urobilinogen (<2.0) EU/dL Ur Leukocyte Esterase (NEGATIVE) Urine RBC (0-2/HPF) Urine WBC (0-5/HPF) Ur Epithelial Cells (NONE-FEW) Urine Bacteria (NEGATIVE) Med Orders - Current: Current Medications Acetaminophen (Tylenol) 650 mg PO Q4H PRN PRN Reason: Pain (Mild 1-3)/fever Albuterol/Ipratropium (Duoneb 3.0-0.5 Mg/3 Ml) 3 ml NEB Q4HRRT PRN PRN Reason: Shortness Of Breath/wheezing Heparin Sodium (Porcine) (Heparin Sodium) 5,000 units SUBCUT Q12H LYSSA Last Admin: 03/13/19 15:45 Dose: 5,000 units Sodium Chloride (Normal Saline) 500 mls @ 999 mls/hr IV .BOLUS LYSSA Meclizine HCl (Antivert) 25 mg PO DAILY PRN PRN Reason: Dizziness Sodium Chloride (Saline Flush) 10 ml FLUSH ASDIRECTED PRN PRN Reason: Keep Vein Open Sodium Chloride (Saline Flush) 2.5 ml FLUSH ASDIRECTED PRN PRN Reason: Keep Vein Open Discontinued Medications Aspirin (Aspirin) 324 mg PO ONETIME ONE Stop: 03/13/19 12:59 Last Admin: 03/13/19 13:54 Dose: 324 mg Sodium Chloride (Normal Saline) 1,000 mls @ 500 mls/hr IV BOLUS ONE Stop: 03/13/19 12:20 Last Infusion: 03/13/19 12:09 Dose: 50 mls/hr Ondansetron HCl (Zofran) 4 mg IVPUSH Q4H PRN PRN Reason: Nausea
--- NOTE | 2019-03-13 20:44 | PCM.SN ---
- Free Text/Narrative Note: Patient showed worsening of her heart block from 1st degree to, 2nd degree type 1, folllwed by 3rd degree heart block. EKG was obtained which showed findings suggestive of 3rd degree heart block. Patient was transferred to icu and put on pace pads for close observation. Troponin was negative. Cardiology was consulted , recommended that patient needs to have a pacemaker before she can be discharged safely. Since we dont have the resources to perform pacemaker insertion here , patient needed to be transferred to higher level of care at [facility]. Patient was agreeable to pacemaker and family aware of transfer as well. Initially ground transport was requested but due to non-availability ( code red and trauma code) there would have been a significant delay so instead air transport was arranged.
[2019-03-13 21:42] VITALS: BP 129/72
[2019-03-13 21:44] VITALS: PULSE 82
== END 2019-03-13 21:00 ==
LOC: MW.ED 10:06 → MW.MS 12:36 → MW.ICU 20:36
PROVIDERS: ADMIT Student in an Organized Health Care Education/Training Program; ATTEND Student in an Organized Health Care Education/Training Program
DX: R42 Dizziness and giddiness (principal); E03.9 Hypothyroidism, unspecified; I10 Essential (primary) hypertension; E78.00 Pure hypercholesterolemia, unspecified; M19.90 Unspecified osteoarthritis, unspecified site; E05.90 Thyrotoxicosis, unspecified without thyrotoxic crisis or storm; Z91.81 History of falling; Z79.899 Other long term (current) drug therapy; Z85.038 Personal history of other malignant neoplasm of large intestine; Z88.6 Allergy status to analgesic agent; Z88.5 Allergy status to narcotic agent; Z91.040 Latex allergy status
CPT/HCPCS: 36415; 70450; 70551; 71045; 80053; 80061; 81001; 83735; 84100; 84443; 84484; 85025; 87086; 93005; 96360; 96361; 96372; 99285; A9270; G0378; J1644; J7040

== ENCOUNTER 2020-09-13 08:51 | Observation (INO) | payer MEDICARE, BC ==
[2020-09-13] MEDS ORDERED: Sodium Chloride 0.9% 2.5 ML Syringe FLUSH PRN (09:13)
[2020-09-13] MEDS ORDERED: Sodium Chloride 0.9% 10 ML Syringe FLUSH PRN (09:13)
[2020-09-13] MEDS ORDERED: Ondansetron 4 MG/2 ML SDV IVPUSH ONE (09:14)
[2020-09-13] MEDS ORDERED: Lactated Ringers 1,000 ML IV ONE (09:14)
--- NOTE | 2020-09-13 09:20 | EDM.PDOC ---
ED HPI GENERAL MEDICAL PROBLEM - General Chief Complaint: Gastrointestinal Problem Stated Complaint: CANT KEEP ANYTHING DOWN Time Seen by Provider: 09/13/20 08:59 - History of Present Illness INITIAL COMMENTS - FREE TEXT/NARRATIVE: 89-year-old female with a history of hypothyroidism, hypertension, remote colon cancer who is presenting with cough and vomiting. Patient states that her illness began approximately 3 weeks ago with nasal congestion and rhinorrhea cough and emesis. She was seen at a clinic and told that it was related to allergies. However, the problems have persisted and she continues to have significant issues with postprandial emesis. Stomach is also now starting to hurt a generalized aching pain. She has chest pain during the active coughing but not at any other time she also reports some dyspnea. She denies fever. She denies myalgias. Patient and her family are both fully vaccinated against COVID-19. The patient received her second COVID-19 shot in July 2020. Patient was able to keep down her levothyroxine and some water this morning she is not tried any solid food today. - Related Data Allergies Allergy/AdvReac Type Severity Reaction Status Date / Time celecoxib [From Celebrex] Allergy Rash Verified 09/13/20 09:03 codeine Allergy Rash Verified 09/13/20 09:03 latex Allergy Rash Verified 09/13/20 09:03 Home Meds: Home Meds Lactose-Reduced Food [Boost] 1 bottle PO DAILY 04/09/14 [History] Naproxen Sodium [Aleve] 2 tab PF ASDIRECTED PRN 04/09/14 [History] Levothyroxine 112 mcg PO DAILY 03/13/19 [History] amLODIPine [Norvasc] 10 mg PO BEDTIME 03/13/19 [History] Past Medical History HEENT History: Reports: Cataract, Other (See Below) Other HEENT History: blind right eye Cardiovascular History: Reports: High Cholesterol, Hypertension Respiratory History: Reports: None Gastrointestinal History: Reports: None Genitourinary History: Reports: None [employer] History: Reports: Musculoskeletal History: Reports: Arthritis, Back Pain, Chronic, Gout Neurological History: Reports: None Psychiatric History: Reports: None Endocrine/Metabolic History: Reports: Hypothyroidism Hematologic History: Reports: None Immunologic History: Reports: None Oncologic (Cancer) History: Reports: Colon Dermatologic History: Reports: None - Infectious Disease History Infectious Disease History: Reports: None - Past Surgical History HEENT Surgical History: Reports: None Cardiovascular Surgical History: Reports: Pacer Respiratory Surgical History: Reports: None GI Surgical History: Reports: Colon, Hernia, Abdominal Female Surgical History: Reports: None Endocrine Surgical History: Reports: None Neurological Surgical History: Reports: Lumbar Spine Musculoskeletal Surgical History: Reports: None Oncologic Surgical History: Reports: None Dermatological Surgical History: Reports: None Social & Family History - Family History Family Medical History: No Pertinent Family History - Caffeine Use Caffeine Use: Reports: None - Recreational Drug Use Recreational Drug Use: No - Living Situation & Occupation Living situation: Reports: , with Family Occupation: Retired ED ROS GENERAL - Review of Systems Review Of Systems: See Below Free Text/Narrative/Comment: General: No fever. Skin: No rash. Eyes: No vision problems. ENT: No sore throat. Neck: No neck stiffness. Respiratory: Per HPI Cardiac: Per HPI Gastrointestinal Per HPI, no diarrhea Urinary: No dysuria. Musculoskeletal: No myalgias/arthralgias. Neurologic: No headache. ED EXAM, GENERAL - Physical Exam Exam: See Below Free Text/Narrative:: General Appearance: No acute distress, appears comfortable Skin: No rash HEENT: Normocephalic/atraumatic, sclera anicteric, mucous membranes dry Neck: Normal range of motion Chest and Lungs: Bilateral breath sounds, clear to auscultation Cardiovascular: Regular rate and rhythm, no murmur Abdomen: Soft, generalized tenderness without guarding or rebound no distention Musculoskeletal: No edema or tenderness Neurologic: Awake, alert, no obvious deficits, moving all extremities Psychiatric: Appropriate, cooperative #1 Interpretation EKG Date: 09/13/20 Time: 09:35 EKG Interpretation Comments: Sinus rhythm rate of 81 right bundle branch block, QTC 49 no acute ischemia Course - Vital Signs Last Recorded V/S: Last Vital Signs Temp 97.6 F 09/13/20 08:56 Pulse 73 09/13/20 11:30 Resp 17 09/13/20 11:30 BP 123/64 09/13/20 11:30 Pulse Ox 94 L 09/13/20 11:30 - Orders/Labs/Meds Orders: Active Orders 24 hr Category Date Time Status EKG Documentation Completion [RC] AM Care 09/13/20 09:13 Active Sodium Chloride 0.9% [Saline Flush] Med 09/13/20 09:13 Active 10 ml FLUSH ASDIRECTED PRN Sodium Chloride 0.9% [Saline Flush] Med 09/13/20 09:13 Active 2.5 ml FLUSH ASDIRECTED PRN Saline Lock Insert [OM.PC] Stat Oth 09/13/20 09:13 Ordered Medication Orders Sodium Chloride (Sodium Chloride 0.9% 10 Ml Syringe) 10 ml FLUSH ASDIRECTED PRN PRN Reason: Keep Vein Open Last Admin: 09/13/20 09:21 Dose: 10 ml Documented by: SHAWNA Sodium Chloride (Sodium Chloride 0.9% 2.5 Ml Syringe) 2.5 ml FLUSH ASDIRECTED PRN PRN Reason: Keep Vein Open Last Admin: 09/13/20 09:21 Dose: 2.5 ml Documented by: SHAWNA Labs: Laboratory Tests 09/13/20 09/13/20 09/13/20 Range/Units 09:18 09:18 09:18 WBC 5.58 (4.0-11.0) K/uL RBC 4.11 L (4.30-5.90) M/uL Hgb 12.9 (12.0-16.0) g/dL Hct 37.5 (36.0-46.0) % MCV 91.2 (80.0-98.0) fL MCH 31.4 (27.0-32.0) pg MCHC 34.4 (31.0-37.0) g/dL RDW Std Deviation 42.9 (28.0-62.0) fl RDW Coeff of Jose Francisco 13 (11.0-15.0) % Plt Count 192 (150-400) K/uL MPV 10.40 (7.40-12.00) fL Neut % (Auto) 54.5 (48.0-80.0) % Lymph % (Auto) 28.1 (16.0-40.0) % [place] % (Auto) 9.9 (0.0-15.0) % Eos % (Auto) 7.0 (0.0-7.0) % Baso % (Auto) 0.5 (0.0-1.5) % Neut # (Auto) 3.0 (1.4-5.7) K/uL Lymph # (Auto) 1.6 (0.6-2.4) K/uL [place] # (Auto) 0.6 (0.0-0.8) K/uL Eos # (Auto) 0.4 (0.0-0.7) K/uL Baso # (Auto) 0.0 (0.0-0.1) K/uL Nucleated RBC % 0.0 /100WBC Nucleated RBCs # 0 K/uL Lactate 1.1 (0.20-2.00) mmol/L Sodium 137 (136-145) mmol/L Potassium 4.0 (3.5-5.1) mmol/L Chloride 100 (98-107) mmol/L Carbon Dioxide 24.5 (21.0-32.0) mmol/L BUN 16 (7.0-18.0) mg/dL Creatinine 1.0 (0.6-1.0) mg/dL Est Cr Clr Drug Dosing 34.32 mL/min Estimated GFR (MDRD) 52.2 ml/min Glucose 124 H (74-106) mg/dL Calcium 8.9 (8.5-10.1) mg/dL Magnesium 2.1 (1.8-2.4) mg/dL Total Bilirubin 0.9 (0.2-1.0) mg/dL AST 37 (15-37) IU/L ALT 25 (14-63) IU/L Alkaline Phosphatase 138 H (46-116) U/L Troponin I < 0.050 (0.000-0.056) ng/mL Total Protein 7.6 (6.4-8.2) g/dL Albumin 3.9 (3.4-5.0) g/dL Globulin 3.7 (2.6-4.0) g/dL Albumin/Globulin Ratio 1.1 (0.9-1.6) Lipase 106 (73-393) U/L Influenza Type A RNA (NEGATIVE) Influenza Type B RNA (NEGATIVE) SARS-CoV-2 RNA (CIRILO) (NEGATIVE) 09/13/20 Range/Units 09:30 WBC (4.0-11.0) K/uL RBC (4.30-5.90) M/uL Hgb (12.0-16.0) g/dL Hct (36.0-46.0) % MCV (80.0-98.0) fL MCH (27.0-32.0) pg MCHC (31.0-37.0) g/dL RDW Std Deviation (28.0-62.0) fl RDW Coeff of Jose Francisco (11.0-15.0) % Plt Count (150-400) K/uL MPV (7.40-12.00) fL Neut % (Auto) (48.0-80.0) % Lymph % (Auto) (16.0-40.0) % [place] % (Auto) (0.0-15.0) % Eos % (Auto) (0.0-7.0) % Baso % (Auto) (0.0-1.5) % Neut # (Auto) (1.4-5.7) K/uL Lymph # (Auto) (0.6-2.4) K/uL [place] # (Auto) (0.0-0.8) K/uL Eos # (Auto) (0.0-0.7) K/uL Baso # (Auto) (0.0-0.1) K/uL Nucleated RBC % /100WBC Nucleated RBCs # K/uL Lactate (0.20-2.00) mmol/L Sodium (136-145) mmol/L Potassium (3.5-5.1) mmol/L Chloride (98-107) mmol/L Carbon Dioxide (21.0-32.0) mmol/L BUN (7.0-18.0) mg/dL Creatinine (0.6-1.0) mg/dL Est Cr Clr Drug Dosing mL/min Estimated GFR (MDRD) ml/min Glucose (74-106) mg/dL Calcium (8.5-10.1) mg/dL Magnesium (1.8-2.4) mg/dL Total Bilirubin (0.2-1.0) mg/dL AST (15-37) IU/L ALT (14-63) IU/L Alkaline Phosphatase (46-116) U/L Troponin I (0.000-0.056) ng/mL Total Protein (6.4-8.2) g/dL Albumin (3.4-5.0) g/dL Globulin (2.6-4.0) g/dL Albumin/Globulin Ratio (0.9-1.6) Lipase (73-393) U/L Influenza Type A RNA NEGATIVE (NEGATIVE) Influenza Type B RNA NEGATIVE (NEGATIVE) SARS-CoV-2 RNA (CIRILO) NEGATIVE (NEGATIVE) Meds: Medications Generic Name Dose Route Start Last Admin Trade Name Freq PRN Reason Stop Dose Admin Sodium Chloride 10 ml 09/13/20 09:13 09/13/20 09:21 Sodium Chloride 0.9% 10 Ml Syringe FLUSH 10 ml ASDIRECTED PRN Administration Keep Vein Open Sodium Chloride 2.5 ml 09/13/20 09:13 09/13/20 09:21 Sodium Chloride 0.9% 2.5 Ml Syringe FLUSH 2.5 ml ASDIRECTED PRN Administration Keep Vein Open Discontinued Medications Generic Name Dose Route Start Last Admin Trade Name Freq PRN Reason Stop Dose Admin Lactated Ringer's 1,000 mls @ 999 mls/hr 09/13/20 09:14 09/13/20 09:21 Ringers, Lactated IV 09/13/20 10:14 999 mls/hr .BOLUS ONE Administration Iopamidol 75 ml 09/13/20 10:38 09/13/20 10:39 Iopamidol 755 Mg/Ml 500 Ml Multipack Bottle IVPUSH 09/13/20 10:39 75 ml ONETIME ONE Administration Ondansetron HCl 4 mg 09/13/20 09:14 09/13/20 09:21 Ondansetron 4 Mg/2 Ml Sdv IVPUSH 09/13/20 09:15 4 mg ONETIME ONE Administration Departure - Departure Time of Disposition: 12:22 Disposition: Refer to Observation Condition: Good Clinical Impression: Portal vein thrombosis - Discharge Information *PRESCRIPTION DRUG MONITORING PROGRAM REVIEWED*: Not Applicable *COPY OF PRESCRIPTION DRUG MONITORING REPORT IN PATIENT VIVIANA: Not Applicable Referrals: PCP,None [Primary Care Provider] - Forms: ED Department Discharge Sepsis Event Note (ED) - Evaluation Sepsis Screening Result: No Definite Risk - Focused Exam Vital Signs: Vital Signs Temp Pulse Resp BP Pulse Ox 09/13/20 11:30 73 17 123/64 94 L 09/13/20 11:09 74 20 123/54 L 94 L 09/13/20 10:34 76 20 124/75 93 L 09/13/20 10:01 75 22 H 124/82 97 09/13/20 08:56 97.6 F 93 16 116/79 95 - My Orders Last 24 Hours: My Active Orders 09/13/20 09:13 EKG Documentation Completion [RC] AM Sodium Chloride 0.9% [Saline Flush] 10 ml FLUSH ASDIRECTED PRN Sodium Chloride 0.9% [Saline Flush] 2.5 ml FLUSH ASDIRECTED PRN Saline Lock Insert [OM.PC] Stat - Assessment/Plan Last 24 Hours: My Active Orders 09/13/20 09:13 EKG Documentation Completion [RC] AM Sodium Chloride 0.9% [Saline Flush] 10 ml FLUSH ASDIRECTED PRN Sodium Chloride 0.9% [Saline Flush] 2.5 ml FLUSH ASDIRECTED PRN Saline Lock Insert [OM.PC] Stat Assessment:: 89-year-old female presenting with now 3 weeks of rhinorrhea cough and p.o. intolerance. Significant postnasal drip related to allergies can certainly lead to coughing and occasionally nausea and vomiting. However the duration of this seems atypical. That said the duration would also be somewhat atypical for small bowel obstruction or other acute abdominal emergency. Her abdomen exam is relatively benign. However, given her advanced age CT scan has been ordered to evaluate for SBO or other acute abdominal process. Given her lack of sign ificant abdominal pain mesenteric ischemia is felt to be very unlikely. Primary ACS likewise felt unlikely but given her advanced age of her own history EKG and single troponin ordered to assess for any signs of heart stress. Covid possible it is very unlikely given her vaccination status but again will exclude with swab. Given lack of fever pneumonia felt less likely as well but is also consid eration. Patient has no clinical signs of heart failure. Zofran and LR have been ordered for symptom control and hydration she is dry mucous membranes will continue to reassess. 1205: Labs are without acutely concerning finding, though Alk Phos is elevated. 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 The hepatic mass has an associated portal vein thrombus. Given this case discussed with Annie Ortega. They note that the cancer can likely be worked up as an outpatient, the more urgent aspect is the protal vein thrombus which would be treated with anticoagulation. They request that we see if we can keep the patient here. However, if the hospitalist does not feel that this is appropriate, then they are happy to take the patient. 1222: Pt discussed with Dr. Colon. Since labs are good and sx resolved and imaging is without obstruction will admit here for anticoagulation initiation.
[2020-09-13 09:47] LABS: BLOOD UREA NITROGEN,BUN 16 mg/dL (7.0-18.0); CARBON DIOXIDE,CO2 24.5 mmol/L (21.0-32.0); CHLORIDE,CL 100 mmol/L (98-107); GLUCOSE RANDOM 124 mg/dL (74-106); LIPASE 106 U/L (73-393); SODIUM,NA 137 mmol/L (136-145)
--- NOTE | 2020-09-13 10:18 | CR ---
INDICATION: Cough TECHNIQUE: Single-view chest Comparison: 03/13/2019 chest x-ray FINDINGS: Stable cardiac mediastinal silhouette. Right upper lobe patchy opacities with peripheral rounded opacity. Left lung appears clear. No pneumothorax or effusion. IMPRESSION: 1. Peripheral right upper lobe rounded masslike opacity with additional patchy airspace opacities in the right upper lobe. Findings could be on the basis infection, malignancy not excluded. Recommend either short interval follow-up with repeat imaging or CT imaging. Dictated by Nadya Luevano MD @ 09/13/2020 10:16:[address] Nadya Luevano @ Sep 13 2020 10:16AM
[2020-09-13 10:20] LABS: CORONAVIRUS COVID-19 NAA NEGATIVE (NEGATIVE); INFLUENZA A NAA NEGATIVE (NEGATIVE); INFLUENZA B NAA NEGATIVE (NEGATIVE)
[2020-09-13] MEDS ORDERED: Iopamidol 755 MG/ML 500 ML Multipack Bottle IVPUSH ONE (10:38)
--- NOTE | 2020-09-13 11:53 | CT ---
Indication: Vomiting Technique: Contrast and CT abdomen pelvis. 75 mL Isovue 370 Comparison: CT abdomen pelvis 06/24/2015 Findings: Basilar subpleural ground-glass reticular opacities may represent fibrotic change or atelectasis. No effusion. Heart size normal no pericardial effusion. Small hiatal hernia. Spleen right adrenal gland is unremarkable. Small left adrenal nodule does not appear significantly changed measuring 1 cm. There is heterogeneous mass involving the peripheral right hepatic lobe measuring approximately 5.2 x 5.3 centimeter series 301, image 39 there is also tubular hypodensity extending from the right portal vein most likely reflecting portal vein thrombus. There is no ascites. Calcified portacaval node again seen. No adenopathy seen. Mild infrarenal abdominal aortic aneurysm measuring 2.5 cm. Symmetric enhancement both kidneys probable tiny cysts left kidney. Diverticulosis. Colon is incompletely distended there may be some wall thickening of the descending colon sigmoid colon versus nondistention. Right hemicolectomy Urinary bladder is slightly distended otherwise unremarkable. No suspicious bony lesions right humeral arthroplasty. Impression: 1. Large ill-defined right hepatic mass measuring approximately 5.2 x 5.3 centimeters. Tubular hypodensity extending from the right portal vein most likely reflecting portal vein thrombus. Findings most likely reflect neoplastic process to include hepatic metastasis, intrahepatic cholangiocarcinoma or HCC. 2. Stable left adrenal nodule. 3. Descending colon and sigmoid colon nondistended some mild wall thickening could be related to nondistention or possibly mild colitis. Please note that all CT scans at this facility use dose modulation, iterative reconstruction, and/or weight-based dosing when appropriate to reduce radiation dose to as low as reasonably achievable. Dictated by Nadya Luevano MD @ 09/13/2020 11:52:[address] Nadya Luevano @ Sep 13 2020 11:52AM
[2020-09-13] MEDS ORDERED: Heparin Sodium 5,000 Units/ML Vial IVPUSH ONE (12:13)
[2020-09-13] MEDS ORDERED: Heparin Sodium/0.45% NaCl 500 ML IV SCH (12:15)
--- NOTE | 2020-09-13 15:44 | PCM.HP.2 ---
H&P History of Present Illness - General Date of Service: 09/13/20 Admit Problem/Dx: Admission Diagnosis/Problem Admission Diagnosis/Problem Portal vein thrombosis - History of Present Illness Initial Comments - Free Text/Narative: 89 yo female with pmh of colon cancer ten years in remission, heart block s/p pacemaker, and hypothyrodism who presents with one week history of nausea, abdominal pain, and vomiting. Patient believes her symptoms are due to her allergies and post nasal drip causing her stomach pain. IN the ED she had a CT scan of the abdomen reporting right hepatic mass and likely portal vein t hrombus. CXR shows right upper lobe mass. - Related Data Allergies/Adverse Reactions: Allergies Allergy/AdvReac Type Severity Reaction Status Date / Time celecoxib [From Celebrex] Allergy Rash Verified 09/13/20 14:22 codeine Allergy Rash Verified 09/13/20 14:22 latex Allergy Rash Verified 09/13/20 14:22 Home Medications: Home Meds Lactose-Reduced Food [Boost] 1 bottle PO DAILY 04/09/14 [History] Levothyroxine 112 mcg PO DAILY 03/13/19 [History] amLODIPine [Norvasc] 10 mg PO BEDTIME 03/13/19 [History] Enoxaparin [Lovenox] 60 mg SUBCUT Q24H #14 syringe 09/14/20 [Rx] Loratadine [Claritin] 10 mg PO DAILY #30 tab 09/14/20 [Rx] Ondansetron [Zofran ODT] 4 mg PO Q6H PRN #30 tab 09/14/20 [Rx] Past Medical History HEENT History: Reports: Cataract, Macular Degeneration, Other (See Below) Other HEENT History: blind right eye; 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 Cardiovascular History: Reports: High Cholesterol, Hypertension Respiratory History: Reports: None Gastrointestinal History: Reports: None Genitourinary History: Reports: None HEAD GROWER History: Reports: Musculoskeletal History: Reports: Arthritis, Back Pain, Chronic, Gout Neurological History: Reports: None Psychiatric History: Reports: None Endocrine/Metabolic History: Reports: Hypothyroidism Hematologic History: Reports: None Immunologic History: Reports: None Oncologic (Cancer) History: Reports: Colon Dermatologic History: Reports: None - Infectious Disease History Infectious Disease History: Reports: None - Past Surgical History HEENT Surgical History: Reports: None Cardiovascular Surgical History: Reports: Pacer Respiratory Surgical History: Reports: None GI Surgical History: Reports: Colon, Hernia, Abdominal Female Surgical History: Reports: None Endocrine Surgical History: Reports: None Neurological Surgical History: Reports: Lumbar Spine Musculoskeletal Surgical History: Reports: None Oncologic Surgical History: Reports: None Dermatological Surgical History: Reports: None Social & Family History - Family History Family Medical History: No Pertinent Family History - Tobacco Use Tobacco Use Status *Q: Never Tobacco User Second Hand Smoke Exposure: No - Caffeine Use Caffeine Use: Reports: Coffee, Soda, Tea - Recreational Drug Use Recreational Drug Use: No - Living Situation & Occupation Living situation: Reports: , with Family Occupation: Retired H&P Review of Systems - Review of Systems: Review Of Systems: Comprehensive ROS is negative, except as noted in HPI. Exam - Exam Exam: See Below - Vital Signs Vital Signs: Last Vital Signs Temp 36.4 C 09/13/20 13:48 Pulse 78 09/13/20 13:48 Resp 26 H 09/13/20 13:48 BP 129/72 09/13/20 13:48 Pulse Ox 94 L 09/13/20 13:48 Weight: 62.868 kg - Exam General: Alert, Oriented HEENT: Mucosa Moist & Brilliant - Patient Data Lab Results Last 24 hrs: Laboratory Results - last 24 hr 09/13/20 09/13/20 09/13/20 Range/Units 09:18 09:18 09:18 WBC 5.58 (4.0-11.0) K/uL RBC 4.11 L (4.30-5.90) M/uL Hgb 12.9 (12.0-16.0) g/dL Hct 37.5 (36.0-46.0) % MCV 91.2 (80.0-98.0) fL MCH 31.4 (27.0-32.0) pg MCHC 34.4 (31.0-37.0) g/dL RDW Std Deviation 42.9 (28.0-62.0) fl RDW Coeff of Jose Francisco 13 (11.0-15.0) % Plt Count 192 (150-400) K/uL MPV 10.40 (7.40-12.00) fL Neut % (Auto) 54.5 (48.0-80.0) % Lymph % (Auto) 28.1 (16.0-40.0) % [place] % (Auto) 9.9 (0.0-15.0) % Eos % (Auto) 7.0 (0.0-7.0) % Baso % (Auto) 0.5 (0.0-1.5) % Neut # (Auto) 3.0 (1.4-5.7) K/uL Lymph # (Auto) 1.6 (0.6-2.4) K/uL Os[place] # (Auto) 0.6 (0.0-0.8) K/uL Eos # (Auto) 0.4 (0.0-0.7) K/uL Baso # (Auto) 0.0 (0.0-0.1) K/uL Nucleated RBC % 0.0 /100WBC Nucleated RBCs # 0 K/uL APTT (18.6-31.3) SEC Lactate 1.1 (0.20-2.00) mmol/L Sodium 137 (136-145) mmol/L Potassium 4.0 (3.5-5.1) mmol/L Chloride 100 (98-107) mmol/L Carbon Dioxide 24.5 (21.0-32.0) mmol/L BUN 16 (7.0-18.0) mg/dL Creatinine 1.0 (0.6-1.0) mg/dL Est Cr Clr Drug Dosing 34.32 mL/min Estimated GFR (MDRD) 52.2 ml/min Glucose 124 H (74-106) mg/dL Calcium 8.9 (8.5-10.1) mg/dL Magnesium 2.1 (1.8-2.4) mg/dL Total Bilirubin 0.9 (0.2-1.0) mg/dL AST 37 (15-37) IU/L ALT 25 (14-63) IU/L Alkaline Phosphatase 138 H (46-116) U/L Troponin I < 0.050 (0.000-0.056) ng/mL Total Protein 7.6 (6.4-8.2) g/dL Albumin 3.9 (3.4-5.0) g/dL Globulin 3.7 (2.6-4.0) g/dL Albumin/Globulin Ratio 1.1 (0.9-1.6) Lipase 106 (73-393) U/L Influenza Type A RNA (NEGATIVE) Influenza Type B RNA (NEGATIVE) SARS-CoV-2 RNA (CIRILO) (NEGATIVE) 09/13/20 09/13/20 Range/Units 09:18 09:30 WBC (4.0-11.0) K/uL RBC (4.30-5.90) M/uL Hgb (12.0-16.0) g/dL Hct (36.0-46.0) % MCV (80.0-98.0) fL MCH (27.0-32.0) pg MCHC (31.0-37.0) g/dL RDW Std Deviation (28.0-62.0) fl RDW Coeff of Jose Francisco (11.0-15.0) % Plt Count (150-400) K/uL MPV (7.40-12.00) fL Neut % (Auto) (48.0-80.0) % Lymph % (Auto) (16.0-40.0) % [place] % (Auto) (0.0-15.0) % Eos % (Auto) (0.0-7.0) % Baso % (Auto) (0.0-1.5) % Neut # (Auto) (1.4-5.7) K/uL Lymph # (Auto) (0.6-2.4) K/uL Os[place] # (Auto) (0.0-0.8) K/uL Eos # (Auto) (0.0-0.7) K/uL Baso # (Auto) (0.0-0.1) K/uL Nucleated RBC % /100WBC Nucleated RBCs # K/uL APTT 21.2 (18.6-31.3) SEC Lactate (0.20-2.00) mmol/L Sodium (136-145) mmol/L Potassium (3.5-5.1) mmol/L Chloride (98-107) mmol/L Carbon Dioxide (21.0-32.0) mmol/L BUN (7.0-18.0) mg/dL Creatinine (0.6-1.0) mg/dL Est Cr Clr Drug Dosing mL/min Estimated GFR (MDRD) ml/min Glucose (74-106) mg/dL Calcium (8.5-10.1) mg/dL Magnesium (1.8-2.4) mg/dL Total Bilirubin (0.2-1.0) mg/dL AST (15-37) IU/L ALT (14-63) IU/L Alkaline Phosphatase (46-116) U/L Troponin I (0.000-0.056) ng/mL Total Protein (6.4-8.2) g/dL Albumin (3.4-5.0) g/dL Globulin (2.6-4.0) g/dL Albumin/Globulin Ratio (0.9-1.6) Lipase (73-393) U/L Influenza Type A RNA NEGATIVE (NEGATIVE) Influenza Type B RNA NEGATIVE (NEGATIVE) SARS-CoV-2 RNA (CIRILO) NEGATIVE (NEGATIVE) Result Diagrams: 09/14/20 06:17 09/14/20 06:17 Sepsis Event Note - Evaluation Sepsis Screening Result: No Definite Risk - Focused Exam Vital Signs: Vital Signs Temp Pulse Resp BP Pulse Ox 09/13/20 13:48 36.4 C 78 26 H 129/72 94 L 09/13/20 13:22 36.4 C 76 20 130/74 92 L 09/13/20 12:35 83 20 137/89 93 L 09/13/20 11:30 73 17 123/64 94 L 09/13/20 11:09 74 20 123/54 L 94 L 09/13/20 10:34 76 20 124/75 93 L 09/13/20 10:01 75 22 H 124/82 97 09/13/20 08:56 36.4 C 93 16 116/79 95 Problem List Initiated/Reviewed/Updated: Yes Orders Last 24hrs: Active Orders 24 hr Category Date Time Status Patient Status [ADT] Routine ADT 09/13/20 12:21 Active EKG Documentation Completion [RC] AM Care 09/13/20 09:13 Active PTT,PARTIAL THROMBOPLSTIN TIME [COAG] Q6 Lab 09/13/20 18:15 Ordered PTT,PARTIAL THROMBOPLSTIN TIME [COAG] Q6 Lab 09/14/20 00:15 Ordered PTT,PARTIAL THROMBOPLSTIN TIME [COAG] Q6 Lab 09/14/20 06:15 Ordered PTT,PARTIAL THROMBOPLSTIN TIME [COAG] Q6 Lab 09/14/20 12:15 Ordered PTT,PARTIAL THROMBOPLSTIN TIME [COAG] Q6H Lab 09/14/20 18:15 Ordered PTT,PARTIAL THROMBOPLSTIN TIME [COAG] Q6H Lab 09/15/20 00:15 Ordered Heparin Sodium/0.45% NaCl [Heparin 25,000 Units in 1/2 Med 09/13/20 12:15 Active NS 500 ML] 500 ml IV TITRATE Levothyroxine Med 09/14/20 09:00 Ordered 112 mcg PO DAILY Sodium Chloride 0.9% [Saline Flush] Med 09/13/20 09:13 Active 10 ml FLUSH ASDIRECTED PRN Sodium Chloride 0.9% [Saline Flush] Med 09/13/20 09:13 Active 2.5 ml FLUSH ASDIRECTED PRN amLODIPine [Norvasc] Med 09/13/20 21:00 Ordered 10 mg PO BEDTIME Saline Lock Insert [OM.PC] Stat Oth 09/13/20 09:13 Ordered Medication Orders Amlodipine Besylate (Amlodipine 5 Mg Tab) 10 mg PO BEDTIME LYSSA Heparin Sodium/Sodium Chloride (Heparin 25,000 Units In 05/16 Ns 500 Ml) 500 mls @ 22.861 mls/hr IV TITRATE LYSSA; Protocol Last Admin: 09/13/20 12:30 Dose: 18 units/kg/hr, 22.861 mls/hr Documented by: SUSHMA Cosigned by: SHAWNA Levothyroxine Sodium (Levothyroxine 112 Mcg Tab) 112 mcg PO DAILY LYSSA Sodium Chloride (Sodium Chloride 0.9% 10 Ml Syringe) 10 ml FLUSH ASDIRECTED PRN PRN Reason: Keep Vein Open Last Admin: 09/13/20 09:21 Dose: 10 ml Documented by: SHAWNA Sodium Chloride (Sodium Chloride 0.9% 2.5 Ml Syringe) 2.5 ml FLUSH ASDIRECTED PRN PRN Reason: Keep Vein Open Last Admin: 09/13/20 09:21 Dose: 2.5 ml Documented by: SHAWNA Assessment/Plan Comment:: 89 yo female admitted for portal vein thrombus in setting of likely liver and lung malignancy. We will place on heparin drip overnight. Plan on CT scan of chest tomorrow. Patient is currently minimally symptomatic.
[2020-09-13] MEDS ORDERED: amLODIPine 5 MG Tab PO SCH (21:00)
[2020-09-14 06:47] LABS: CARBON DIOXIDE,CO2 27.2 mmol/L (21.0-32.0); POTASSIUM,K 4.3 mmol/L (3.5-5.1)
[2020-09-14] MEDS ORDERED: Levothyroxine 112 MCG Tab PO SCH (07:30)
[2020-09-14] MEDS: Ondansetron 4 MG/2 ML SDV IVPUSH PRN ×2 (08:01→14:01)
--- NOTE | 2020-09-14 09:44 | CT ---
Indication: Right lung mass Technique: Volumetric multidetector CT images of the chest were obtained without the administration of IV contrast. Comparison: Single view chest September 13, 2020 Findings: The thoracic inlet and thyroid gland are unremarkable. The thoracic aorta is nonaneurysmal. There are enlarged mediastinal and right hilar lymph nodes with large right paratracheal lymph node measuring up to 2.2 centimeters. There is conglomerate right hilar soft tissue with encasement of the bronchovascular structures. This measures up to 3.6 x 2.7 centimeters. Within the peripheral aspect of the right upper lobe there is demonstration of a spiculated pulmonary mass seen on recent comparison exam measuring 4.7 x 3.2 centimeters on series 201, image 60. There is extensive pulmonary fibrotic change and interlobular septal thickening. There is no pleural effusion, pneumothorax or dense consolidation. There is no additional pulmonary mass within the medial superior aspect of the left upper lobe on series 201, image 34 measuring 1.1 centimeters. The partially visualized upper abdomen demonstrates somewhat heterogeneous appearance of the liver concerning for likely metastatic disease better characterized on recent comparison CT abdomen and pelvis dated September 13, 2020 The thoracic vertebral body heights are grossly maintained with minimal endplate Schmorl`s defects. There is no significant spondylolisthesis or displaced fracture. There is no obvious lytic or blastic focus. Impression: Demonstration of a dominant mass in the peripheral, inferior right upper lobe measuring 4.7 x 3.2 centimeters with associated conglomerate and right hilar soft tissue likely representing metastatic disease. There are enlarged mediastinal lymph nodes. Additional likely metastatic focus in the medial left upper lobe is appreciated. Otherwise ulnar fibrotic changes are appreciated without evidence of dense consolidation or effusion. Redemonstration of metastatic disease within the liver, better characterized on recent CT abdomen and pelvis dated September 13, [address] note that all CT scans at this facility use dose modulation, iterative reconstruction, and/or weight-based dosing when appropriate to reduce radiation dose to as low as reasonably achievable. Dictated by Merlin Orozco MD @ 09/14/2020 9:42:[address] Merlin Orozco @ Sep 14 2020 9:42AM
[2020-09-14] MEDS ORDERED: Enoxaparin 60 MG/0.6 ML Syringe SUBCUT SCH (11:45)
[2020-09-14 12:00] VITALS: BP 108/64; PULSE 77
--- NOTE | 2020-09-14 12:49 | PCM.DCSUM1 ---
Discharge Summary - Hospital Course Brief History: 89 yo female with pmh of colon cancer ten years in remission, heart block s/p pacemaker, and hypothyrodism who presents with one week history of nausea, abdominal pain, and vomiting. Patient believes her symptoms are due to her allergies and post nasal drip causing her stomach pain. IN the ED she had a CT scan of the abdomen reporting right hepatic mass and likely portal vein thrombus. CXR shows right upper lobe mass. - Discharge Data Discharge Date: 09/14/20 Discharge Disposition: Home, Self-Care 01 Condition: Good - Referral to Home Health Primary Care Physician: PCP None - Patient Summary/Data Hospital Course: Admission diagnoses Nausea vomiting Abdominal pain Hepatic mass Portal vein thrombosis Discharge diagnoses Hepatic mass Pulmonary mass likely metastatic in nature Portal vein thrombosis Other PMH History of colon cancer 10 years in remission Heart block status post pacemaker Hypothyroidism Danielle was admitted secondary to abdominal pain nausea vomiting. She was found to have new hepatic mass likely metastatic in nature as well as pulmonary mass. She was started on heparin drip for portal vein thrombosis. Today she is feeling improved nausea is tolerable with Zofran prior to meals. She is very eager to be discharged home. We will get her set up for outpatient biopsy of liver mass. She will be continued on Lovenox 60 mg subcutaneous daily for portal vein thrombosis, she was given 2-week supply and will need further prescription by PCP. PCP to follow biopsy as well as arrange oncology appointment when results available. Patient at this time would like treatment if possible though she is understanding that her disease at this point is likely late stage and may have limited treatment options. Daughter Radha has been kept in the loop and is agreeable with plan. Patient will have biopsy set up with [facility]. No appointment today will be able to be made they will contact patient and daughter tomorrow to arrange appointment. They are aware patient is on daily Lovenox at this time. She is to return to the ER clinic if concerns should arise. Zofran to be sent to take 30 minutes prior to meals to help with nausea. - Patient Instructions Diet: Usual Diet as Tolerated Activity: No Strenuous Activities, Rest and Relax Today Driving: Do Not Drive Showering/Bathing: May Shower Notify Provider of: Fever, Increased Pain, Drainage, Nausea and/or Vomiting Other/Special Instructions: Monitor for signs of bleeding. Follow up with [facility] being arranged to biopsy. - Discharge Plan *PRESCRIPTION DRUG MONITORING PROGRAM REVIEWED*: Not Applicable *COPY OF PRESCRIPTION DRUG MONITORING REPORT IN PATIENT VIVIANA: Not Applicable Prescriptions/Med Rec: Loratadine [Claritin] 10 mg PO DAILY #30 tab Enoxaparin [Lovenox] 60 mg SUBCUT Q24H #14 syringe Ondansetron [Zofran ODT] 4 mg PO Q6H PRN #30 tab PRN Reason: Nausea Home Medications: Home Meds Lactose-Reduced Food [Boost] 1 bottle PO DAILY 04/09/14 [History] Levothyroxine 112 mcg PO DAILY 03/13/19 [History] amLODIPine [Norvasc] 10 mg PO BEDTIME 03/13/19 [History] Enoxaparin [Lovenox] 60 mg SUBCUT Q24H #14 syringe 09/14/20 [Rx] Loratadine [Claritin] 10 mg PO DAILY #30 tab 09/14/20 [Rx] Ondansetron [Zofran ODT] 4 mg PO Q6H PRN #30 tab 09/14/20 [Rx] Oxygen Therapy Mode: Room Air Patient Handouts: Ondansetron oral dissolving tablet, Enoxaparin injection, Soft-Food Eating Plan, Dizziness, [id number], Loratadine capsules or tablets Referrals: Getachew Patterson MD [Physician] - 09/23/20 9:00 am - Discharge Summary/Plan Comment DC Time >30 min.: No - Patient Data Vitals - Most Recent: Last Vital Signs Temp 97.7 F 09/14/20 11:59 Pulse 77 09/14/20 11:59 Resp 19 09/14/20 11:59 BP 108/64 09/14/20 11:59 Pulse Ox 91 L 09/14/20 11:59 Weight - Most Recent: 62.868 kg I&O - Last 24 hours: Intake & Output 09/13/20 09/14/20 09/14/20 22:59 06:59 14:59 Intake Total 240 1520 Output Total 1150 1100 Balance -910 420 Lab Results - Last 24 hrs: Laboratory Results - last 24 hr 09/13/20 09/14/20 09/14/20 Range/Units 18:16 00:33 06:17 WBC (4.0-11.0) K/uL RBC (4.30-5.90) M/uL Hgb (12.0-16.0) g/dL Hct (36.0-46.0) % MCV (80.0-98.0) fL MCH (27.0-32.0) pg MCHC (31.0-37.0) g/dL RDW Std Deviation (28.0-62.0) fl RDW Coeff of Jose Francisco (11.0-15.0) % Plt Count (150-400) K/uL MPV (7.40-12.00) fL Neut % (Auto) (48.0-80.0) % Lymph % (Auto) (16.0-40.0) % Wallace % (Auto) (0.0-15.0) % Eos % (Auto) (0.0-7.0) % Baso % (Auto) (0.0-1.5) % Neut # (Auto) (1.4-5.7) K/uL Lymph # (Auto) (0.6-2.4) K/uL Wallace # (Auto) (0.0-0.8) K/uL Eos # (Auto) (0.0-0.7) K/uL Baso # (Auto) (0.0-0.1) K/uL Nucleated RBC % /100WBC Nucleated RBCs # K/uL APTT 72.7 H 53.4 H 54.7 H (18.6-31.3) SEC Sodium (136-145) mmol/L Potassium (3.5-5.1) mmol/L Chloride (98-107) mmol/L Carbon Dioxide (21.0-32.0) mmol/L BUN (7.0-18.0) mg/dL Creatinine (0.6-1.0) mg/dL Est Cr Clr Drug Dosing mL/min Estimated GFR (MDRD) ml/min Glucose (74-106) mg/dL Calcium (8.5-10.1) mg/dL 09/14/20 09/14/20 Range/Units 06:17 06:17 WBC 5.33 (4.0-11.0) K/uL RBC 3.99 L (4.30-5.90) M/uL Hgb 12.3 (12.0-16.0) g/dL Hct 36.6 (36.0-46.0) % MCV 91.7 (80.0-98.0) fL MCH 30.8 (27.0-32.0) pg MCHC 33.6 (31.0-37.0) g/dL RDW Std Deviation 43.2 (28.0-62.0) fl RDW Coeff of Jose Francisco 13 (11.0-15.0) % Plt Count 196 (150-400) K/uL MPV 10.30 (7.40-12.00) fL Neut % (Auto) 47.9 L (48.0-80.0) % Lymph % (Auto) 35.6 (16.0-40.0) % Wallace % (Auto) 8.8 (0.0-15.0) % Eos % (Auto) 7.3 H (0.0-7.0) % Baso % (Auto) 0.4 (0.0-1.5) % Neut # (Auto) 2.6 (1.4-5.7) K/uL Lymph # (Auto) 1.9 (0.6-2.4) K/uL Wallace # (Auto) 0.5 (0.0-0.8) K/uL Eos # (Auto) 0.4 (0.0-0.7) K/uL Baso # (Auto) 0.0 (0.0-0.1) K/uL Nucleated RBC % 0.0 /100WBC Nucleated RBCs # 0 K/uL APTT (18.6-31.3) SEC Sodium 138 (136-145) mmol/L Potassium 4.3 (3.5-5.1) mmol/L Chloride 102 (98-107) mmol/L Carbon Dioxide 27.2 (21.0-32.0) mmol/L BUN 14 (7.0-18.0) mg/dL Creatinine 1.1 H (0.6-1.0) mg/dL Est Cr Clr Drug Dosing 31.20 mL/min Estimated GFR (MDRD) 46.8 ml/min Glucose 124 H (74-106) mg/dL Calcium 8.1 L (8.5-10.1) mg/dL Med Orders - Current: Current Medications Amlodipine Besylate (Amlodipine 5 Mg Tab) 10 mg PO BEDTIME LYSSA Last Admin: 09/13/20 21:59 Dose: 10 mg Documented by: Enoxaparin Sodium (Enoxaparin 60 Mg/0.6 Ml Syringe) 60 mg SUBCUT Q24H [facility] Last Admin: 09/14/20 11:53 Dose: 60 mg Documented by: Levothyroxine Sodium (Levothyroxine 112 Mcg Tab) 112 mcg PO ACBRK [facility] Last Admin: 09/14/20 06:32 Dose: 112 mcg Documented by: Ondansetron HCl (Ondansetron 4 Mg/2 Ml Sdv) 4 mg IVPUSH Q4H PRN PRN Reason: Nausea Last Admin: 09/14/20 08:01 Dose: 4 mg Documented by: Sodium Chloride (Sodium Chloride 0.9% 10 Ml Syringe) 10 ml FLUSH ASDIRECTED PRN PRN Reason: Keep Vein Open Last Admin: 09/13/20 09:21 Dose: 10 ml Documented by: Sodium Chloride (Sodium Chloride 0.9% 2.5 Ml Syringe) 2.5 ml FLUSH ASDIRECTED PRN PRN Reason: Keep Vein Open Last Admin: 09/13/20 09:21 Dose: 2.5 ml Documented by: Discontinued Medications Heparin Sodium (Porcine) (Heparin Sodium 5,000 Units/Ml Vial) 5,000 units IVPUSH ONETIME ONE Stop: 09/13/20 12:14 Last Admin: 09/13/20 12:28 Dose: 5,000 units Documented by: Lactated Ringer's (Ringers, Lactated) 1,000 mls @ 999 mls/hr IV .BOLUS ONE Stop: 09/13/20 10:14 Last Admin: 09/13/20 09:21 Dose: 999 mls/hr Documented by: Heparin Sodium/Sodium Chloride (Heparin 25,000 Units In 1/2 Ns 500 Ml) 500 mls @ 22.861 mls/hr IV TITRATE [facility]; Protocol Last Titration: 09/14/20 07:18 Dose: 16 units/kg/hr, 20.321 mls/hr Documented by: Iopamidol (Iopamidol 755 Mg/Ml 500 Ml Multipack Bottle) 75 ml IVPUSH ONETIME ONE Stop: 09/13/20 10:39 Last Admin: 09/13/20 10:39 Dose: 75 ml Documented by: Ondansetron HCl (Ondansetron 4 Mg/2 Ml Sdv) 4 mg IVPUSH ONETIME ONE Stop: 09/13/20 09:15 Last Admin: 09/13/20 09:21 Dose: 4 mg Documented by:
== END 2020-09-14 14:45 | disposition home or self-care (01) ==
LOC: MW.ED 08:51 → MW.MS 12:21
PROVIDERS: ADMIT Internal Medicine; ATTEND Internal Medicine
DX: I81 Portal vein thrombosis (principal); K76.89 Other specified diseases of liver; R91.8 Other nonspecific abnormal finding of lung field; E03.9 Hypothyroidism, unspecified; E78.00 Pure hypercholesterolemia, unspecified; I10 Essential (primary) hypertension; Z20.822 Contact with and (suspected) exposure to COVID-19; Z91.040 Latex allergy status; Z88.6 Allergy status to analgesic agent; Z88.8 Allergy status to other drugs, medicaments and biological substances; Z79.890 Hormone replacement therapy; Z85.038 Personal history of other malignant neoplasm of large intestine; Z95.0 Presence of cardiac pacemaker
CPT/HCPCS: 0240U; 36415; 71045; 71250; 74177; 80048; 80053; 83605; 83690; 83735; 84484; 85025; 85730; 93005; 96365; 96366; 96372; 96374; 96375; 96376; 99285; A9270; G0378; J1644; J1650; J2405; J7120; Q9967; 93010; 99283